=== PATIENT | male | born 2000 | race Two or more races ===

== ENCOUNTER 2024-05-16 10:50 | Emergency (ER) | payer OTHER ==
[~2024-05-16] VITALS: Ht 175.3 cm; Wt 68.0 kg
[2024-05-16] MEDS ORDERED: NORVASC10 MG (10:54)
[2024-05-16] MEDS ORDERED: METRONIDAZOLE/SODIUM CHLORIDE 500 MG/100 ML PIGGYBACK IV ONE ×2 (13:15→13:45)
[2024-05-16] MEDS ORDERED: HYOSCYAMINE SULFATE 0.125 MG TAB.SUBL SL ONE (13:15)
[2024-05-16] MEDS ORDERED: 0.9 % SODIUM CHLORIDE 1,000 ML IV SCH (13:15)
[2024-05-16] MEDS ORDERED: HYOSCYAMINE SULFATE 0.125 MG TAB.SUBL ONE (13:45)
[2024-05-16 14:22] LABS: HEMATOCRIT 42.6 % (39.0-48.0); HEMOGLOBIN 13.9 g/dL (13-16.00); MEAN CELL VOLUME 84.6 fL (80.0-100.00); MEAN CORPUSCULAR HEMOGLOBIN 27.6 pg (27.00-32.0); MEAN CORPUSCULAR HGB CONC 32.6 g/dl (32.0-36.0); PLATELET COUNT 218 K/uL (150-450); RED BLOOD COUNT 5.04 M/uL (4.00-6.00); RED CELL DISTRIBUTION WIDTH 14.6 % (11.5-14.5)
[2024-05-16 14:44] LABS: CALCIUM 9.1 mg/dL (8.5-10.1); CREATININE SERUM 0.96 mg/dL (0.70-1.30); GFR 94.68; POTASSIUM 4.29 mEq/L (3.5-5.1)
[2024-05-16] MEDS ORDERED: PROBIOTIC1 EAC2 PO (17:00)
[2024-05-16] MEDS ORDERED: PEPCID AC20 MG PO (17:00)
[2024-05-16] MEDS ORDERED: ZOFRAN8 MG PO (17:00)
[2024-05-16] MEDS ORDERED: QUESTRAN PACKET4 GM PO (17:00)
== END 2024-05-16 18:07 | disposition home or self-care (01) ==
LOC: ER 10:51
PROVIDERS: Emergency Medicine
DX: K52.9 Noninfective gastroenteritis and colitis, unspecified (principal)

== ENCOUNTER → 2024-12-14 | Emergency (ER) | payer OTHER ==
[~2024-12-14] VITALS: Ht 172.7 cm; Wt 68.0 kg
[~2024-12-14] MED LIST: NORFLEX100MG PO; NORVASC10 MG; PEPCID AC20 MG PO; PROBIOTIC1 EAC2 PO; QUESTRAN PACKET4 GM PO; ZOFRAN8 MG PO
[2024-12-14 18:49] LABS: BASO % 0.6 % (0.1-1.2); EOS # 0.40 (0.04-0.54); EOS % 6.1 % (0.7-7.0); LYMPH # 2.04 (1.18-3.74); LYMPH % 31.3 % (19.3-53.1); MEAN PLATELET VOLUME 11.30 fl (9.4-12.4); MONO # 0.75 (0.24-0.82); MONO % 11.5 % (4.7-12.5); NEUT # 3.27 (1.56-6.13); NEUT % 50.3 % (34.0-71.1); RED CELL DISTRIBUTION WIDTH 13.1 % (11.6-14.4)
[2024-12-14 18:52] LABS: COVID-19 AG NEGATIVE (NEGATIVE)
[2024-12-14 19:14] LABS: ALT/SGPT 33.0 U/L (12-78); AST/SGOT 32.0 U/L (15-37); BILIRUBIN TOTAL 0.76 mg/dL (0.3-1.2); BUN CREA RATIO 12.0 (7.0-25.0); CREATININE SERUM 1.13 mg/dL (0.70-1.30); GFR 78.44; GLOBULINA 3.5 G/DL (2.4-3.5); GLUCOSE FASTING 103.0 mg/dL (65-100); OSMOLALITY SERUM 282.0 MOSM/KG (275-295)
== END | disposition home or self-care (01) ==
LOC: ER 16:46
PROVIDERS: General Practice
DX: M94.0 Chondrocostal junction syndrome [Tietze] (principal); R07.89 Other chest pain; I10 Essential (primary) hypertension; Z20.822 Contact with and (suspected) exposure to COVID-19